=== PATIENT | female | born 1990 ===

== ENCOUNTER 2016-11-17 09:33 | Day surgery (SDC) | payer OTHER ==
[2016-11-14 09:48] VITALS: BMI 50.3
[2016-11-17] MEDS ORDERED: Bupivacaine HCl 0.25% PF (10 ml) Inj ONE (12:02)
[2016-11-17] MEDS ORDERED: ceFAZolin IV 2 gm in Dextrose 1 GM/50 ML BAG IVPB ONE (12:03)
[2016-11-17] MEDS ORDERED: Midazolam 2 MG/2 ML VIAL ONE (12:08)
[2016-11-17] MEDS ORDERED: Propofol 10 mg/ml Inj (20 ML) ONE ×2 (12:08→12:14)
[2016-11-17] MEDS ORDERED: Lactated Ringer's 1,000 ML IV ONE ×3 (12:10→14:00)
[2016-11-17] MEDS ORDERED: Neostigmine Methylsulfate 3mg/3ml Syringe IV ONE (12:58)
[2016-11-17] MEDS ORDERED: Oxycodone/Acetaminophen 5/325 mg Tab PO PRN (13:03)
[2016-11-17] MEDS ORDERED: Lactated Ringer's 1,000 ML IV SCH (13:30)
[2016-11-17] MEDS: HYDROmorphone 0.5 mg/0.5 ml ISec IVP PRN ×2 (13:32→13:49)
[2016-11-17] MEDS ORDERED: HYDROmorphone 0.5 mg/0.5 ml ISec ONE (13:49)
--- NOTE | 2016-11-17 14:21 | OP ---
PROCEDURE DATE: 11/17/2016 PREOPERATIVE DIAGNOSES: Acute and chronic cholecystitis. POSTOPERATIVE DIAGNOSES: Acute and chronic cholecystitis with an incarcerated umbilical hernia. PROCEDURES PERFORMED: 1. Laparoscopic cholecystectomy (61152). 2. Repair of a simple liver laceration (08386). 3. Repair of incarcerated umbilical hernia (39917). SURGEON: Marty Isaac MD FARM AGENT: Dr. Kincaid ANESTHESIA: General endotracheal. ESTIMATED BLOOD LOSS: 30 mL. POSTOPERATIVE CONDITION: Stable. INDICATIONS FOR SURGERY: A 26-year-old female who has history of gallstones and cholecystitis, was h ospitalized at [facility] with acute cholecystitis recently. Now admitted for elective laparos copic cholecystectomy. GROSS FINDINGS: The gallbladder was chronically inflamed. It contained adhesions. Dissection withi n the gallbladder bed was somewhat difficult. The gallbladder, cystic duct and cystic duct/common du ct junction were clearly identified prior to clipping the cystic duct. An incarcerated umbilical her lu was encountered as the patient was obese and this was repaired upon closing the abdomen. There w as also a simple liver laceration medial to the gallbladder bed, which was repaired laparoscopically. PROCEDURE: The abdomen was prepped and draped after general anesthesia was administered. Periumbili karely cutdown was performed and the small incarcerated umbilical hernia was encountered and excised and a blunt port was inserted into the abdomen. The abdomen was insufflated with CO2 and under direct v ision, the remaining ports were placed. The gallbladder was retracted and the cystic duct was carefu lly dissected free. The cystic duct, gallbladder, cystic duct/common duct junction were clearly iden tified. The cystic duct was then clipped and divided. The cystic artery was identified, dissected f ree, clipped and divided. The gallbladder was removed from the bed using the cautery. Bleeding in t he bed was controlled using the cautery. A simple laceration medially was repaired laparoscopically. The abdomen was irrigated with saline until clear. The ports were removed and the umbilical hernia site was repaired with interrupted heavy Vicryl suture. The wounds were irrigated with saline and s imple closures were performed using subcuticular 3-0 Monocryl and glue. The patient tolerated proced ure well, returned to recovery room in stable condition. Marty Isaac MD cc: [id number] TT: 11/17/2016 14:20:44 en
[2016-11-17] MEDS ORDERED: Dexamethasone 4 mg/1 ml IV STA (15:38)
[2016-11-17 16:54] VITALS: O2SAT 100
[2016-11-17 19:43] VITALS: BP 133/69; PULSE 93; RESP 20; TEMP 98
== END 2016-11-17 19:00 | disposition home or self-care (01) ==
LOC: C.SDS 09:33
PROVIDERS: ATTEND Surgery
DX: K81.2 Acute cholecystitis with chronic cholecystitis (principal); K42.0 Umbilical hernia with obstruction, without gangrene
CPT/HCPCS: 47562; 49587; 88304; C1713; J0690; J1100; J1170; J2250; J2405; J2704; J2710; J2765; J3010; J7040; J7120